=== PATIENT | female | born 1945 | race Caucasian/White ===

== ENCOUNTER 2020-05-06 06:40 | Inpatient (IN) | payer OTHER, MEDICARE ==
[~2020-05-06] VITALS: Ht 157.5 cm; Wt 60.8 kg
[2020-05-06] MEDS ORDERED: ONDANSETRON HCL 4MG/2ML INJ IV STA (06:52)
[2020-05-06] MEDS ORDERED: SODIUM CHLORIDE 0.9% 1,000 ML IV ONE (07:00)
[2020-05-06 07:15] LABS: CHLORIDE 94 mEq/L (98-107)
[2020-05-06 07:19] LABS: BASOPHILS % 0.1 % (0.0-2.0); HEMATOCRIT. 33.6 % (36.0-48.0); HEMOGLOBIN. 11.4 g/dL (12.0-16.0); LYMPHOCYTES % 8.8 % (20.0-50.0); MEAN CORPUSCULAR HEMOGLOBIN 28.9 pg (28.0-32.0); MEAN CORPUSCULAR VOLUME 85.1 fL (81.0-99.0); MEAN PLATELET VOLUME 8.3 fl (7.4-10.4); NEUTROPHILS % 86.1 % (40.0-76.0); PLATELET 402 x1000/uL (130-400); RED BLOOD CELL COUNT 3.95 mill/uL (4.2-5.4); RED CELL DISTRIBUTION WIDTH 13.7 % (11.6-14.6)
[2020-05-06 07:22] LABS: BETA HYDROXYBUTYRATE 0.9 mMol/L (0.0-0.3)
[2020-05-06 07:23] LABS: INR 1.1; PROTHROMBIN TIME 11.4 sec (9.6-11.0)
[2020-05-06] MEDS ORDERED: AMLODIPINE 5MG TABLET PO ONE (07:45)
[2020-05-06] MEDS ORDERED: LABETALOL 5MG/ML SYR 20 MG/4 ML SYRINGE IV ONE (07:45)
[2020-05-06] MEDS ORDERED: INSULIN REGULAR (HUMULIN R) 300UNITS/3ML VIAL IV ONE (07:45)
[2020-05-06] MEDS ORDERED: FUROSEMIDE 40MG/4ML VIAL IVP ONE (07:45)
[2020-05-06] MEDS ORDERED: INSULIN REGULAR (HUMULIN R) 300UNITS/3ML VIAL IV NR (08:00)
[2020-05-06] MEDS ORDERED: PIPERACILLIN/TAZ 3.375G PREMIX 50 ML IV ONE (08:15)
[2020-05-06 12:00] VITALS: BP 183/78
[2020-05-06 12:53] LABS: BG BASE EXCESS 1.4 mmol/L (-2.0-2.0); BG CARBOXYHEMOGLOBIN 0.3 % (0.5-1.5); BG DEOXYHEMOGLOBIN 4.3 % (0.0-5.0); BG FRACTION INSPIRED OXYGEN 21; BG HCO3 ACT 25.8 mmol/L (22.0-26.0); BG METHEMOGLOBIN 0.2 % (0.0-1.5); BG OXYGEN SATURATION 95.7 % (92.0-98.5); BG OXYHEMOGLOBIN 95.2 % (94.0-97.0); BG PCO2 39.7 mmHg (35.0-45.0); BG PO2 78.9 mmHg (75.0-100.0); BG SAMPLE SITE LEFT RADIAL; BG TOTAL HEMOGLOBIN 10.6 g/dL (12.0-18.0); BG VENT MODE ROOM AIR
[2020-05-06] MEDS ORDERED: DEXTROSE 50% WATER 50ML SYRINGE IV PRN (13:30)
[2020-05-06] MEDS ORDERED: PIPERACILLIN/TAZOBACTAM 3.375 G in DEXTROSE 5% WATER 50 ML IV SCH (13:30)
[2020-05-06] MEDS: PANTOPRAZOLE SODIUM 40 MG/VIAL IV SCH (15:22)
[2020-05-06] MEDS: ENOXAPARIN 40MG/0.4ML SYR SUBCUT SCH (15:23)
[2020-05-06] MEDS: PIPERACILLIN/TAZOBACTAM 2.25 G in DEXTROSE 5% WATER 50 ML IV SCH ×2 (15:24→21:34)
[2020-05-06] MEDS: DEXT 5%/0.45% NACL KCL 20MEQ/L 1,000 ML IV SCH (15:24)
[2020-05-06 16:00] VITALS: BP 198/90
[2020-05-06] MEDS: ONDANSETRON HCL 4MG/2ML INJ IV PRN (16:18)
[2020-05-06 16:33] VITALS: BP 183/78
[2020-05-06] MEDS ORDERED: ONDA4TAB11 PO (16:52)
[2020-05-06] MEDS: BLOOD SUGAR DIAGNOSTIC STRIP TEST SCH ×2 (17:24→21:35)
[2020-05-06] MEDS: INSULIN LISPRO 100 UNITS/ML SUBCUT SCH ×2 (17:39→21:38)
[2020-05-06] MEDS: CLONIDINE 0.1MG TABLET PO PRN (17:54)
[2020-05-06] MEDS: METOCLOPRAMIDE HCL 10MG/2ML VIAL IV PRN (17:54)
[2020-05-06 20:00] VITALS: BP 116/47
[2020-05-06] MEDS: INSULIN GLARGINE UD 100 UNITS/ML SYR SUBCUT SCH (21:39)
[2020-05-07] MEDS: ONDANSETRON HCL 4MG/2ML INJ IV PRN ×4 (00:23→21:29)
[2020-05-07] MEDS: DEXT 5%/0.45% NACL KCL 20MEQ/L 1,000 ML IV SCH ×2 (00:24→16:28)
[2020-05-07] MEDS: PIPERACILLIN/TAZOBACTAM 2.25 G in DEXTROSE 5% WATER 50 ML IV SCH ×4 (03:05→21:28)
[2020-05-07] MEDS: METOCLOPRAMIDE HCL 10MG/2ML VIAL IV PRN ×3 (03:42→23:04)
[2020-05-07] MEDS: BLOOD SUGAR DIAGNOSTIC STRIP TEST SCH ×4 (06:33→21:29)
[2020-05-07 06:50] LABS: BASOPHILS % 0.2 % (0.0-2.0); EOSINOPHILS % 0.1 % (0.0-5.0); HEMATOCRIT. 28.6 % (36.0-48.0); HEMOGLOBIN. 9.6 g/dL (12.0-16.0); LYMPHOCYTES % 16.6 % (20.0-50.0); MEAN CORPUSCULAR HEMOGLOBIN 28.4 pg (28.0-32.0); MEAN CORPUSCULAR VOLUME 84.9 fL (81.0-99.0); MEAN PLATELET VOLUME 8.1 fl (7.4-10.4); MONOCYTES % 7.6 % (2.0-8.0); NEUTROPHILS % 75.5 % (40.0-76.0); PLATELET 327 x1000/uL (130-400); RED BLOOD CELL COUNT 3.36 mill/uL (4.2-5.4); RED CELL DISTRIBUTION WIDTH 13.6 % (11.6-14.6)
[2020-05-07 06:59] LABS: AMYLASE 18 IU/L (25-115)
[2020-05-07 07:06] LABS: PHOSPHORUS 3.2 mg/dL (2.5-4.9)
[2020-05-07 07:19] LABS: HEPATITIS B SURFACE ANTIGEN NEGATIVE
[2020-05-07 07:49] LABS: HEPATITIS A AB IGM NEGATIVE (NEGATIVE)
[2020-05-07] MEDS: PANTOPRAZOLE SODIUM 40 MG/VIAL IV SCH (08:23)
[2020-05-07] MEDS: INSULIN LISPRO 100 UNITS/ML SUBCUT SCH ×4 (08:23→21:36)
[2020-05-07] MEDS: CLONIDINE 0.1MG TABLET PO PRN (11:32)
[2020-05-07] MEDS: ENOXAPARIN 40MG/0.4ML SYR SUBCUT SCH (13:26)
[2020-05-07] MEDS: AMLODIPINE 10MG TABLET PO SCH (13:26)
[2020-05-07 20:00] VITALS: BP 126/60
[2020-05-07] MEDS: INSULIN GLARGINE UD 100 UNITS/ML SYR SUBCUT SCH (21:35)
[2020-05-08] VITALS: BP 129/62
[2020-05-08] MEDS: PIPERACILLIN/TAZOBACTAM 2.25 G in DEXTROSE 5% WATER 50 ML IV SCH ×4 (04:21→21:15)
[2020-05-08] MEDS: DEXT 5%/0.45% NACL KCL 20MEQ/L 1,000 ML IV SCH ×3 (04:21→17:00)
[2020-05-08] MEDS: METOCLOPRAMIDE HCL 10MG/2ML VIAL IV PRN ×2 (04:24→16:31)
[2020-05-08] MEDS: ONDANSETRON HCL 4MG/2ML INJ IV PRN ×2 (04:24→16:34)
[2020-05-08] MEDS: BLOOD SUGAR DIAGNOSTIC STRIP TEST SCH ×4 (05:54→21:16)
[2020-05-08] MEDS: INSULIN LISPRO 100 UNITS/ML SUBCUT SCH ×4 (05:57→21:00)
[2020-05-08 07:21] LABS: BASOPHILS % 0.4 % (0.0-2.0); EOSINOPHILS % 0.5 % (0.0-5.0); HEMATOCRIT. 30.5 % (36.0-48.0); HEMOGLOBIN. 10.2 g/dL (12.0-16.0); LYMPHOCYTES % 27.5 % (20.0-50.0); MEAN CORPUSCULAR HEMOGLOBIN 28.3 pg (28.0-32.0); MEAN CORPUSCULAR VOLUME 84.1 fL (81.0-99.0); MEAN PLATELET VOLUME 8.2 fl (7.4-10.4); MONOCYTES % 8.7 % (2.0-8.0); NEUTROPHILS % 62.9 % (40.0-76.0); PLATELET 419 x1000/uL (130-400); RED BLOOD CELL COUNT 3.63 mill/uL (4.2-5.4); RED CELL DISTRIBUTION WIDTH 13.7 % (11.6-14.6)
[2020-05-08 08:00] VITALS: BP 138/61
[2020-05-08] MEDS: AMLODIPINE 10MG TABLET PO SCH (09:06)
[2020-05-08] MEDS: PANTOPRAZOLE SODIUM 40 MG/VIAL IV SCH (09:06)
[2020-05-08 12:00] VITALS: BP 139/64
[2020-05-08] MEDS: ENOXAPARIN 40MG/0.4ML SYR SUBCUT SCH (14:15)
[2020-05-08 16:00] VITALS: BP 148/68
[2020-05-08] MEDS ORDERED: AMLO10TA80 PO (16:15)
[2020-05-08] MEDS: INSULIN GLARGINE UD 100 UNITS/ML SYR SUBCUT SCH (21:27)
[2020-05-09] VITALS: BP 135/64
[2020-05-09] MEDS: PIPERACILLIN/TAZOBACTAM 2.25 G in DEXTROSE 5% WATER 50 ML IV SCH ×4 (01:57→21:34)
[2020-05-09] MEDS: DEXT 5%/0.45% NACL KCL 20MEQ/L 1,000 ML IV SCH ×3 (01:57→20:47)
[2020-05-09 04:00] VITALS: BP 157/66
[2020-05-09] MEDS: BLOOD SUGAR DIAGNOSTIC STRIP TEST SCH ×4 (05:46→21:30)
[2020-05-09] MEDS: INSULIN LISPRO 100 UNITS/ML SUBCUT SCH ×4 (05:49→21:37)
[2020-05-09 08:00] VITALS: BP 134/65
[2020-05-09] MEDS: AMLODIPINE 10MG TABLET PO SCH (09:06)
[2020-05-09] MEDS: METOCLOPRAMIDE HCL 10MG/2ML VIAL IV PRN ×2 (09:06→20:47)
[2020-05-09] MEDS: PANTOPRAZOLE SODIUM 40 MG/VIAL IV SCH (09:06)
[2020-05-09 12:00] VITALS: BP 148/72
[2020-05-09] MEDS: ENOXAPARIN 40MG/0.4ML SYR SUBCUT SCH (14:00)
[2020-05-09 16:00] VITALS: BP 153/54
[2020-05-09 20:00] VITALS: BP 160/67
[2020-05-09] MEDS: INSULIN GLARGINE UD 100 UNITS/ML SYR SUBCUT SCH (21:36)
[2020-05-10 00:15] VITALS: BP 150/62
[2020-05-10] MEDS: PIPERACILLIN/TAZOBACTAM 2.25 G in DEXTROSE 5% WATER 50 ML IV SCH ×4 (04:17→21:10)
[2020-05-10 04:30] VITALS: BP 165/65
[2020-05-10] MEDS: CLONIDINE 0.1MG TABLET PO PRN (04:36)
[2020-05-10] MEDS: METOCLOPRAMIDE HCL 10MG/2ML VIAL IV PRN (05:28)
[2020-05-10] MEDS: BLOOD SUGAR DIAGNOSTIC STRIP TEST SCH ×4 (06:45→21:10)
[2020-05-10 07:01] LABS: BASOPHILS % 0.7 % (0.0-2.0); EOSINOPHILS % 1.3 % (0.0-5.0); HEMATOCRIT. 28.9 % (36.0-48.0); HEMOGLOBIN. 9.9 g/dL (12.0-16.0); LYMPHOCYTES % 19.8 % (20.0-50.0); MEAN CORPUSCULAR VOLUME 84.3 fL (81.0-99.0); MEAN PLATELET VOLUME 7.8 fl (7.4-10.4); MONOCYTES % 12.5 % (2.0-8.0); NEUTROPHILS % 65.7 % (40.0-76.0); PLATELET 353 x1000/uL (130-400); RED BLOOD CELL COUNT 3.43 mill/uL (4.2-5.4); RED CELL DISTRIBUTION WIDTH 13.4 % (11.6-14.6)
[2020-05-10 07:05] LABS: CHLORIDE 103 mEq/L (98-107)
[2020-05-10] MEDS: INSULIN LISPRO 100 UNITS/ML SUBCUT SCH ×4 (07:15→21:11)
[2020-05-10] MEDS ORDERED: SKIN ADHESIVE 0.7 GM EA TOP ONE (07:55)
[2020-05-10] MEDS ORDERED: BUPIVACAINE HCL 0.5% (5MG/ML) 50ML ONE (07:55)
[2020-05-10 08:00] VITALS: BP 166/79
[2020-05-10] MEDS: ENOXAPARIN 30MG/0.3ML SYR SUBCUT SCH (08:01)
[2020-05-10] MEDS: AMLODIPINE 10MG TABLET PO SCH (08:18)
[2020-05-10] MEDS: PANTOPRAZOLE SODIUM 40 MG/VIAL IV SCH (08:18)
[2020-05-10] MEDS: DEXT 5%/0.45% NACL KCL 20MEQ/L 1,000 ML IV SCH ×3 (08:19→21:10)
[2020-05-10] MEDS ORDERED: FENTANYL CITRATE/PF 50MCG/ML 2ML VIAL ONE (09:13)
[2020-05-10] MEDS ORDERED: ROCURONIUM BROMIDE 10MG/ML VIAL 5ML IV ONE (09:13)
[2020-05-10] MEDS ORDERED: NEOSTIGMINE METHYLSULFATE 1MG/ML 10 ML VIAL ONE ×2 (09:14→11:02)
[2020-05-10] MEDS ORDERED: MIDAZOLAM HCL 2 MG/2 ML VIAL ONE (09:14)
[2020-05-10] MEDS ORDERED: PROPOFOL 200MG/20ML VIAL IV ONE (09:14)
[2020-05-10] MEDS ORDERED: GLYCOPYRROLATE 0.2 MG/ML 2ML VIAL ONE ×2 (09:14→11:02)
[2020-05-10] MEDS ORDERED: ONDANSETRON HCL 4MG/2ML INJ ONE (09:36)
[2020-05-10] MEDS ORDERED: DEXAMETHASONE 4MG/ML 1ML VIAL ONE (09:36)
[2020-05-10] MEDS ORDERED: MEPERIDINE HCL/PF 25MG/ML CPJ IV PRN (09:45)
[2020-05-10] MEDS ORDERED: HYDROMORPHONE HCL/PF 2MG/ML CPJ IV PRN (09:45)
[2020-05-10] MEDS ORDERED: LABETALOL 5MG/ML SYR 20 MG/4 ML SYRINGE IV PRN (09:45)
[2020-05-10] MEDS ORDERED: MORPHINE SULFATE 2 MG/ML CPJ (NOT FOR IM USE) IV PRN (10:30)
[2020-05-10] MEDS ORDERED: HYDROCODONE/ACETAMINOPHEN 5/325MG TABLET PO PRN ×2 (10:30)
[2020-05-10] MEDS ORDERED: NALOXONE HCL 0.4 MG/ML 1ML VIAL ONE (11:07)
[2020-05-10] MEDS ORDERED: NALOXONE HCL 0.4 MG/ML 1ML VIAL IV ONE (11:15)
[2020-05-10] MEDS: ONDANSETRON HCL 4MG/2ML INJ IV PRN ×2 (12:04→12:22)
[2020-05-10] MEDS ORDERED: METOCLOPRAMIDE HCL 10MG/2ML VIAL IV NR (12:45)
[2020-05-10 16:00] VITALS: BP 152/71
[2020-05-10 20:00] VITALS: BP 168/86
[2020-05-10] MEDS: INSULIN GLARGINE UD 100 UNITS/ML SYR SUBCUT SCH (22:00)
[2020-05-11] VITALS: BP 137/80
[2020-05-11] MEDS: ONDANSETRON HCL 4MG/2ML INJ IV PRN ×3 (00:40→23:39)
[2020-05-11] MEDS: PIPERACILLIN/TAZOBACTAM 2.25 G in DEXTROSE 5% WATER 50 ML IV SCH ×3 (02:54→15:51)
[2020-05-11 04:00] VITALS: BP 153/72
[2020-05-11] MEDS: BLOOD SUGAR DIAGNOSTIC STRIP TEST SCH ×4 (06:09→20:49)
[2020-05-11] MEDS: INSULIN LISPRO 100 UNITS/ML SUBCUT SCH ×4 (07:15→21:44)
[2020-05-11 08:00] VITALS: BP 151/66
[2020-05-11] MEDS: FAMOTIDINE 20MG/2ML VIAL IV SCH (08:23)
[2020-05-11] MEDS: AMLODIPINE 10MG TABLET PO SCH (08:23)
[2020-05-11] MEDS: DEXT 5%/0.45% NACL KCL 20MEQ/L 1,000 ML IV SCH ×2 (08:24→17:48)
[2020-05-11] MEDS: ENOXAPARIN 30MG/0.3ML SYR SUBCUT SCH (08:24)
[2020-05-11] MEDS: METOCLOPRAMIDE HCL 10MG/2ML VIAL IV PRN (08:24)
[2020-05-11 12:00] VITALS: BP 140/75
[2020-05-11 16:00] VITALS: BP 135/65
[2020-05-11 20:00] VITALS: BP 128/72
[2020-05-11] MEDS: INSULIN GLARGINE UD 100 UNITS/ML SYR SUBCUT SCH (21:44)
[2020-05-12] VITALS: BP 132/68
[2020-05-12] MEDS: DEXT 5%/0.45% NACL KCL 20MEQ/L 1,000 ML IV SCH ×2 (05:26→13:49)
[2020-05-12 06:07] LABS: HEMATOCRIT 27.2 % (36.0-48.0); HEMOGLOBIN 9.1 g/dL (12.0-16.0); MEAN CORPUSCULAR HEMOGLOBIN 28.6 pg (28.0-32.0); MEAN CORPUSCULAR VOLUME 85.7 fL (81.0-99.0); PLATELET 314 x1000/uL (130-400); RED BLOOD CELL COUNT 3.17 mill/uL (4.2-5.4); RED CELL DISTRIBUTION WIDTH 13.5 % (11.6-14.6)
[2020-05-12] MEDS: BLOOD SUGAR DIAGNOSTIC STRIP TEST SCH ×3 (07:11→16:56)
[2020-05-12] MEDS: INSULIN LISPRO 100 UNITS/ML SUBCUT SCH ×3 (07:11→17:03)
[2020-05-12 08:00] VITALS: BP 143/65
[2020-05-12] MEDS: FAMOTIDINE 20MG/2ML VIAL IV SCH (08:46)
[2020-05-12] MEDS: AMLODIPINE 10MG TABLET PO SCH (08:46)
[2020-05-12] MEDS: ENOXAPARIN 30MG/0.3ML SYR SUBCUT SCH (08:46)
[2020-05-12] MEDS: METOCLOPRAMIDE HCL 10MG/2ML VIAL IV PRN (11:39)
[2020-05-12] MEDS ORDERED: PIPERACILLIN/TAZOBACTAM 3.375 G in DEXT 5% WATER 100 ML IV SCH (11:45)
[2020-05-12] MEDS ORDERED: ONDANSETRON HCL 4MG/2ML INJ IV PRN (11:45)
[2020-05-12 12:00] VITALS: BP 127/58
[2020-05-12 13:36] VITALS: BP 127/58
[2020-05-12] MEDS ORDERED: PIPERACILLIN/TAZOBACTAM 2.25 G in DEXTROSE 5% WATER 50 ML IV SCH (14:00)
[2020-05-12 18:24] VITALS: BP 144/61
== END 2020-05-12 18:57 | disposition home or self-care (01) | DRG 417 ==
LOC: ER 06:40 → 5WST 08:35
PROVIDERS: ADMIT Internal Medicine; ATTEND Internal Medicine
PROC: 0FT44ZZ Resection of Gallbladder, Percutaneous Endoscopic Approach (ICD-10-PCS; principal; 2020-05-10)
DX: K80.62 Calculus of gallbladder and bile duct with acute cholecystitis without obstruction (principal); N17.0 Acute kidney failure with tubular necrosis; E87.1 Hypo-osmolality and hyponatremia; E87.2 Acidosis; E87.8 Other disorders of electrolyte and fluid balance, not elsewhere classified; I11.0 Hypertensive heart disease with heart failure; K76.0 Fatty (change of) liver, not elsewhere classified; E11.65 Type 2 diabetes mellitus with hyperglycemia; E11.43 Type 2 diabetes mellitus with diabetic autonomic (poly)neuropathy; K31.84 Gastroparesis; Z20.822 Contact with and (suspected) exposure to COVID-19; I16.0 Hypertensive urgency; Z91.14 Patient's other noncompliance with medication regimen; Z83.3 Family history of diabetes mellitus; Z79.899 Other long term (current) drug therapy; I50.9 Heart failure, unspecified
CPT/HCPCS: 36415; 36600; 71045; 73706; 74176; 74181; 76705; 78227; 80048; 80053; 80076; 82010; 82140; 82150; 82248; 82375; 82805; 82962; 83036; 83605; 83735; 83880; 83930; 84100; 84443; 84484; 85025; 85027; 86705; 86709; 86803; 87340; 87426; 88304; 93005; 93970; 97162; 97166; 99291; A9537; C9113; J1100; J1170; J1650; J1815; J1940; J2250; J2310; J2405; J2543; J2704; J2710; J2765; J3010; J3480; J3490; J7030; J7040; J7060